=== PATIENT | male | born 1955 | race Caucasian/White ===

== ENCOUNTER 2019-02-08 16:08 | Observation (INO) ==
[2019-02-08 17:43] LABS: Basophils # 0.1 10*3/uL (0.0-0.2); Basophils % 0.9 % (0.0-0.8); Eosinophils # 0.2 10*3/uL (0.0-0.87); Eosinophils % 2.1 % (0.00-10.9); Hematocrit 46.5 VOL% (42.0-52.0); Hemoglobin 15.7 GM/DL (14.0-18.0); Immature Granulocytes % 0.5 %; Immature Granulocytes Absolute 0.05 #; Lymphocytes # 2.5 10*3/uL (1.4-4.0); Lymphocytes % 25.3 % (21.2-54.2); Mean Corpuscular HGB Conc 33.8 GM/DL (32-36); Mean Corpuscular Volume 90.1 FL (87-102); Mean Platelet Volume 9.5 FL (9.6-12.0); Monocytes % 8.2 % (1.7-12.7); Platelet Count 303 T/CUMM (130-400); Red Blood Count 5.16 MC/CUMM (3.8-5.5); Red Cell Distribution Width 13.9 % (9.3-17.3); White Blood Count 9.9 T/CUMM (4-12)
[2019-02-08 17:52] LABS: INR 0.9; PT Patient Result 9.7 SECS (9.6-12.2)
[2019-02-08] MEDS ORDERED: hydrALAZINE 20 MG/1 ML VIAL IV STA ×2 (18:45→20:00)
[2019-02-08 18:56] LABS: Alanine Aminotransferase 25 U/L (16-61); Albumin 3.5 G/DL (3.4-5.0); Alkaline Phosphatase 52 U/L (45-117); Aspartate Amino Transferase 22 U/L (0-37); Bilirubin,Total < 0.39 MG/DL (0.2-1.0); Blood Urea Nitrogen 15 MG/DL (7-18); Calcium 9.2 MG/DL (8.5-10.1); Glucose 133 MG/DL (74-106); Osmolality,Calculated 275.8 MOS/KG (273-304); Total Protein 7.5 G/DL (6.4-8.3)
[2019-02-08] MEDS ORDERED: MAGNESIUM SULF RIDER 4 GM in PREMIX 1 EACH IV PRN (18:56)
[2019-02-08] MEDS ORDERED: MAGNESIUM SULF RIDER 2 GM in PREMIX 1 EACH IV PRN (18:56)
[2019-02-08] MEDS ORDERED: POTASSIUM CHLORIDE 20 MEQ TABLET PO PRN ×2 (18:56)
[2019-02-08] MEDS ORDERED: ONDANSETRON 4 MG/2 ML VIAL IV PRN (18:56)
[2019-02-08] MEDS ORDERED: GLUCAGON 1 MG VIAL IM PRN (19:05)
[2019-02-08] MEDS ORDERED: DEXTROSE 10% 250 ML BAG IV PRN (19:05)
[2019-02-08] MEDS ORDERED: cloNIDine 0.1 MG TABLET ONE (19:19)
[2019-02-08] MEDS ORDERED: hydrALAZINE 20 MG/1 ML VIAL IV PRN (19:26)
[2019-02-08] MEDS ORDERED: cloNIDine 0.1 MG TABLET PO ONE (19:58)
[2019-02-08] MEDS: POTASSIUM CHLORIDE 20 MEQ TABLET PO SCH ×2 (20:34→22:00)
[2019-02-08] MEDS ORDERED: ROSUVASTATIN 10 MG TABLET PO SCH (21:00)
[2019-02-08] MEDS ORDERED: CARVEDILOL 12.5 MG TABLET PO SCH (21:00)
[2019-02-08] MEDS: INSULIN REGULAR 100 UNIT/ML SUBCUT SCH (21:46)
[2019-02-08] MEDS: CARVEDILOL 25 MG TABLET PO SCH (22:06)
[2019-02-09 01:20] LABS: Basophils # 0.1 10*3/uL (0.0-0.2); Basophils % 0.6 % (0.0-0.8); Eosinophils # 0.2 10*3/uL (0.0-0.87); Eosinophils % 2.1 % (0.00-10.9); Hematocrit 41.6 VOL% (42.0-52.0); Hemoglobin 14.2 GM/DL (14.0-18.0); Immature Granulocytes % 0.5 %; Immature Granulocytes Absolute 0.05 #; Lymphocytes # 2.5 10*3/uL (1.4-4.0); Lymphocytes % 23.2 % (21.2-54.2); Mean Corpuscular HGB Conc 34.1 GM/DL (32-36); Mean Corpuscular Volume 91.2 FL (87-102); Mean Platelet Volume 9.5 FL (9.6-12.0); Monocytes % 8.3 % (1.7-12.7); Neutrophils % 65.3 % (38.7-73.9); Platelet Count 280 T/CUMM (130-400); Red Blood Count 4.56 MC/CUMM (3.8-5.5); Red Cell Distribution Width 14.2 % (9.3-17.3); White Blood Count 10.6 T/CUMM (4-12)
[2019-02-09 01:54] LABS: Calcium 8.1 MG/DL (8.5-10.1); Osmolality,Calculated 280.7 MOS/KG (273-304); Risk Ratio 6.5
[2019-02-09] MEDS: INSULIN REGULAR 100 UNIT/ML SUBCUT SCH ×3 (08:52→18:59)
[2019-02-09] MEDS: CARVEDILOL 25 MG TABLET PO SCH ×2 (08:55→18:59)
[2019-02-09] MEDS ORDERED: ASPIRIN EC 325 MG TABLET PO SCH (09:00)
[2019-02-09] MEDS ORDERED: FAMOTIDINE 20 MG TABLET PO SCH (09:00)
[2019-02-09] MEDS ORDERED: cloNIDine 0.1 MG TABLET PO SCH (09:00)
[2019-02-09] MEDS ORDERED: amLODIPine 10 MG TABLET PO SCH (09:00)
[2019-02-09] MEDS ORDERED: ALLOPURINOL 300 MG TABLET PO SCH (09:00)
[2019-02-09] MEDS ORDERED: FENOFIBRATE 160 MG TABLET PO SCH (13:00)
[2019-02-09 16:46] VITALS: BP 127/74
[2019-02-10] MEDS ORDERED: FENOFIBRATE 160 MG TABLET PO SCH (09:00)
== END 2019-02-09 17:42 | disposition home or self-care (01) ==
LOC: N.EDINP 16:08 → N.ED 16:08 → SUATTDRO 18:55 → N.TELEN 20:11
PROVIDERS: ADMIT Hospitalist; ATTEND Internal Medicine